=== PATIENT | female | born 1995 | race Caucasian/White ===

== ENCOUNTER 2021-06-02 21:25 | Emergency (ER) | payer BC ==
[2021-06-02] MEDS ORDERED: Azithromycin 250 MG Tab PO ONE (22:54)
--- NOTE | 2021-06-02 22:55 | EDM.PDOC ---
ED HPI GENERAL MEDICAL PROBLEM - General Chief Complaint: ENT Problem Stated Complaint: STREP Time Seen by Provider: 06/02/21 21:50 - History of Present Illness INITIAL COMMENTS - FREE TEXT/NARRATIVE: HISTORY AND PHYSICAL: History of present illness: This is a 26-year-old female with history second for strep throat in the past and migraines who presents ER today with a sore throat developed her prior strep infections. Patient has any recent fevers, shakes, chills, nausea, vomiting, diarrhea, dysuria, frequency, urgency. Patient reports occasional cough. Patient has any abdominal pain chest pain. Patient is requesting antibiotics even though her strep test is negative as she has had false negative test was also in the past. Review of systems: As per history of present illness and below otherwise all systems reviewed and negative. Past medical history: As per history of present illness and as reviewed below otherwise noncontributory. Surgical history: As per history of present illness and as reviewed below otherwise noncontributory. Social history: No reported history of drug abuse. Family history: As per history of present illness and as reviewed below otherwise noncontributory. Physical exam: This patient was seen and evaluated during the 2019 SARS-CoV-2 novel coronavirus pandemic period. Community viral transmission is ongoing at time of this encounter and the emergency department is operating under pandemic response procedures. Constitutional: Patient is oriented to person, place, and time. Appears well- developed and well-nourished. No distress. HEENT: Moist mucous membranes Head: Normocephalic and atraumatic Eyes: Right eye exhibits no discharge. Left eye exhibits no discharge. No scleral icterus Neck: Normal range of motion. No tracheal deviation present. Cardiovascular: Normal rate and regular rhythm. Pulmonary: Effort normal, no respiratory distress. Abdominal: No distention Musculoskeletal: Normal range of motion Neurologic: Alert and oriented to person, place and time. Skin: [place], warm and dry. Psychiatric: Normal mood and affect. Behavior is normal. Judgment and thought content normal. Nursing note and vital signs have been reviewed Patient's oropharynx is mildly erythematous bilaterally with tender bilateral submandibular lymphadenopathy. No trismus. No respiratory compromise. No stridor. Diagnostics: Strep screen negative Therapeutics: [] Assessment and plan: 26-year-old female who presents ER today with signs and symptoms consistent or concerning for strep. Patient strep screen is negative. Patient will be given a course of antibiotics per her request. Definitive disposition and diagnosis as appropriate pending reevaluation and review of above. throat Pain Score (Numeric/FACES): 3 - Related Data Allergies Allergy/AdvReac Type Severity Reaction Status Date / Time No Known Allergies Allergy Verified 06/19/14 18:23 Home Meds: Home Meds norgestimate-ethinyl estradioL [[place] 28 Tablet] 1 PO DAILY 06/19/14 [History] Azithromycin [Zithromax] 250 mg PO DAILY #4 tablet 06/02/21 [Rx] Past Medical History - Past Health History Medical/Surgical History: Denies Medical/Surgical History Neurological History: Reports: Migraines - Past Surgical History Other Neurological Surgeries/Procedures: lumbar puncture Social & Family History - Tobacco Use Tobacco Use Status *Q: Never Tobacco User - Recreational Drug Use Recreational Drug Use: No ED ROS GENERAL - Review of Systems Review Of Systems: See Below ED EXAM, GENERAL - Physical Exam Exam: See Below Course - Vital Signs Last Recorded V/S: Last Vital Signs Temp 96.9 F 06/02/21 21:47 Pulse 93 06/02/21 21:47 Resp 16 06/02/21 21:47 BP 133/82 06/02/21 21:47 Pulse Ox 98 06/02/21 21:47 - Orders/Labs/Meds Labs: Laboratory Tests 06/02/21 Range/Units 21:37 Group A Strep (PCR) NOT DETECTED (NOT DETECT) Meds: Medications Discontinued Medications Generic Name Dose Route Start Last Admin Trade Name Carlos PRN Reason Stop Dose Admin Azithromycin 500 mg 06/02/21 22:54 06/02/21 23:00 Azithromycin 250 Mg Tab PO 06/02/21 22:55 500 mg Q24H ONE Administration Departure - Departure Time of Disposition: 22:54 Disposition: Home, Self-Care 01 Condition: Good Clinical Impression: Pharyngitis - Discharge Information Prescriptions: Azithromycin [Zithromax] 250 mg PO DAILY #4 tablet Instructions: Pharyngitis Referrals: PCP,None [Primary Care Provider] - Forms: ED Department Discharge Additional Instructions: He was seen and evaluated in the ER today secondary to your sore throat. Your strep screen is negative however given the rate of false negative test results I will go ahead and start you on antibiotics to treat strep. Please make appoint to follow-up with your doctor as needed. You can take ibuprofen and Tylenol [id number] as needed for pain. The following information is given to patients seen in the emergency department who are being discharged to home. This information is to outline your options for follow-up care. We provide all patients seen in our emergency department w ith a follow-up referral. The need for follow-up, as well as the timing and circumstances, are variable depending upon the specifics of your emergency department visit. If you don't have a primary care physician on staff, we will provide you with a referral. We always advise you to contact your personal physician following an emergency department visit to inform them of the circumstance of the visit and for follow-up with them and/or the need for any referrals to a consulting specialist. The emergency department will also refer you to a specialist when appropriate. This referral assures that you have the opportunity for follow-up care with a specialist. All of these measure are taken in an effort to provide you with optimal care, which includes your follow-up. Under all circumstances we always encourage you to contact your private physician who remains a resource for coordinating your care. When calling for follow-up care, please make the office aware that this follow-up is from your recent emergency room visit. If for any reason you are refused follow-up, please contact the [facility] Emergency Department at and asked to speak to the emergency department charge nurse. [facility] [address] [place] [id number] [facility] [address] [place] [id number] Sepsis Event Note (ED) - Evaluation Sepsis Screening Result: No Definite Risk
== END 2021-06-02 23:01 | disposition home or self-care (01) ==
LOC: MW.ED 21:25
DX: J02.9 Acute pharyngitis, unspecified (principal)
CPT/HCPCS: 87651; 99283; A9270